=== PATIENT | female | born 1955 | race Caucasian/White ===

== ENCOUNTER 2021-01-28 07:00 | Inpatient (IN) ==
[2021-01-28] MEDS ORDERED: GLUCAGON 1 MG VIAL IM PRN (09:57)
[2021-01-28] MEDS ORDERED: DEXTROSE 50% 25 GM/50 ML VIAL IV PRN (09:57)
[2021-01-28] MEDS ORDERED: SODIUM CHLORIDE 0.9% 1,000 ML IV SCH (10:00)
[2021-01-28] MEDS ORDERED: NITROGLYCERIN SL 0.4 MG TABLET SL PRN (10:06)
[2021-01-28] MEDS ORDERED: DEXTROSE 50% 25 GM/50 ML SYRINGE IV PRN (10:26)
[2021-01-28] MEDS: INSULIN REGULAR 100 UNIT/ML SUBCUT SCH ×3 (12:20→20:58)
[2021-01-28 12:59] LABS: Basophils % 0.3 % (0.0-0.8); Eosinophils # 0.1 10*3/uL (0.0-0.87); Eosinophils % 1.9 % (0.00-10.9); Immature Granulocytes % 0.6 %; Immature Granulocytes Absolute 0.02 #; Lymphocytes # 0.7 10*3/uL (1.4-4.0); Lymphocytes % 21.3 % (21.3-54.2); Mean Corpuscular HGB Conc 32.4 GM/DL (32-36); Mean Platelet Volume 10.8 FL (9.6-12.0); Monocytes % 10.5 % (1.7-12.7); Neutrophils % 65.4 % (38.7-73.9); Red Blood Count 2.31 MC/CUMM (3.8-5.5); Red Cell Distribution Width 15.8 % (9.3-17.3); White Blood Count 3.2 T/CUMM (4-12)
[2021-01-28 13:04] LABS: Hematocrit 23.8 VOL% (35.7-47.0); Hemoglobin 7.7 GM/DL (12.0-16.0); Platelet Count 50 T/CUMM (130-400)
[2021-01-28 13:16] LABS: Bilirubin,Total 0.7 MG/DL (0.20-1.00); Calcium 8.7 MG/DL (8.5-10.1); Osmolality,Calculated 277.2 MOS/KG (273-304); Potassium 4.5 MMOL/L (3.5-5.1); Total Protein 5.8 G/DL (6.4-8.2)
[2021-01-28] MEDS: CLORAZEPATE 3.75 MG TABLET PO PRN ×2 (14:44→21:04)
[2021-01-28] MEDS: MORPHINE 2 MG/1 ML SYRINGE IV PRN (14:45)
[2021-01-28] MEDS: CHLORHEXIDINE 4% SOLN 118 ML BOTTLE TOP SCH ×2 (16:20→21:31)
[2021-01-28 16:39] LABS: ABG Base Excess 3.3 MMOL/L (-2.5-2.5); ABG HCO3 27.4 MMOL/L (20-26); ABG Oxygen Saturation 94.6 % (95-100); ABG PCO2 41.6 MM HG (35-48); ABG PH 7.434 (7.35-7.45); ABG PO2 70.2 MM HG (80-95); ABG TCO2 25.9 MMOL/L (23-27)
[2021-01-28] MEDS: CHLORHEXIDINE 0.12% ORAL RINSE 60 ML BOTTLE SWISH/SPIT SCH (21:31)
[2021-01-29] MEDS: MORPHINE 2 MG/1 ML SYRINGE IV PRN ×2 (04:12→18:30)
[2021-01-29] MEDS: INSULIN REGULAR 100 UNIT/ML SUBCUT SCH ×4 (09:08→21:38)
[2021-01-29] MEDS: cloNIDine 0.1 MG TABLET PO SCH ×2 (09:55→21:38)
[2021-01-29] MEDS: amLODIPine 10 MG TABLET PO SCH (09:55)
[2021-01-29] MEDS: FUROSEMIDE 40 MG TABLET PO SCH (09:55)
[2021-01-29] MEDS: glipiZIDE 5 MG TABLET PO SCH (09:55)
[2021-01-29] MEDS: carvediloL 6.25 MG TABLET PO SCH ×2 (09:55→21:38)
[2021-01-29] MEDS: CHLORHEXIDINE 0.12% ORAL RINSE 60 ML BOTTLE SWISH/SPIT SCH (09:56)
[2021-01-29] MEDS: CHLORHEXIDINE 4% SOLN 118 ML BOTTLE TOP SCH (09:56)
[2021-01-29] MEDS: CLORAZEPATE 3.75 MG TABLET PO PRN ×3 (10:01→23:45)
[2021-01-29] MEDS ORDERED: SODIUM CHLORIDE 0.9% 1,000 ML IV PRN (13:58)
[2021-01-29] MEDS ORDERED: ZINC OXIDE PASTE 113 GM TUBE TOP PRN (15:09)
[2021-01-29] MEDS ORDERED: DOCUSATE SODIUM 100 MG/10 ML UDCUP PO SCH (21:00)
[2021-01-30] MEDS: CHLORHEXIDINE 0.12% ORAL RINSE 60 ML BOTTLE SWISH/SPIT SCH ×3 (00:20→21:02)
[2021-01-30] MEDS ORDERED: PAPAVERINE 60 MG/2 ML VIAL ONE (04:16)
[2021-01-30] MEDS ORDERED: VANCOMYCIN 1,000 MG VIAL ONE (04:17)
[2021-01-30] MEDS ORDERED: VANCOMYCIN 500 MG VIAL ONE (04:17)
[2021-01-30 04:49] LABS: Basophils % 0.3 % (0.0-0.8); Eosinophils % 1.3 % (0.00-10.9); Hematocrit 28.5 VOL% (35.7-47.0); Hemoglobin 9.3 GM/DL (12.0-16.0); Immature Granulocytes % 0.3 %; Immature Granulocytes Absolute 0.01 #; Lymphocytes % 31.8 % (21.3-54.2); Mean Corpuscular HGB Conc 32.6 GM/DL (32-36); Mean Corpuscular Volume 102.5 FL (87-102); Mean Platelet Volume 10.2 FL (9.6-12.0); Monocytes % 9.7 % (1.7-12.7); Neutrophils % 56.6 % (38.7-73.9); Platelet Count 45 T/CUMM (130-400); Red Blood Count 2.78 MC/CUMM (3.8-5.5); Red Cell Distribution Width 15.6 % (9.3-17.3); White Blood Count 3.2 T/CUMM (4-12)
[2021-01-30] MEDS ORDERED: CEFUROXIME INJ 1,500 MG in SODIUM CHLORIDE 0.9% 100 ML IV ONE (05:00)
[2021-01-30 05:11] LABS: Calcium 8.8 MG/DL (8.5-10.1); Potassium 4.3 MMOL/L (3.5-5.1)
[2021-01-30 05:13] LABS: Hypochromasia Slight; Microcytosis 1+; Ovalocytes Slight; Platelet Estimate Decreased
[2021-01-30] MEDS ORDERED: FAMOTIDINE 20 MG TABLET PO ONE (05:30)
[2021-01-30] MEDS ORDERED: DIAZEPAM 5 MG TABLET PO ONE (05:30)
[2021-01-30] MEDS ORDERED: ALBUTEROL 2.5 MG/3 ML NEB RESP TX ONE (05:30)
[2021-01-30] MEDS ORDERED: MIDAZOLAM 10 MG/2 ML VIAL ONE ×4 (05:34→09:58)
[2021-01-30] MEDS ORDERED: LIDOCAINE 2% 5 ML VIAL ONE ×2 (05:34→10:20)
[2021-01-30] MEDS ORDERED: VECURONIUM 10 MG VIAL IV ONE (05:34)
[2021-01-30] MEDS ORDERED: AMINOCAPROIC ACID 5,000 MG/20 ML VIAL ONE (05:34)
[2021-01-30] MEDS ORDERED: SUFentanil 250 MCG/5 ML AMP ONE ×2 (05:35)
[2021-01-30] MEDS: carvediloL 6.25 MG TABLET PO SCH ×2 (06:03→11:59)
[2021-01-30] MEDS ORDERED: PHENYLEPHRINE 10 MG/1 ML VIAL IV ONE (06:11)
[2021-01-30] MEDS ORDERED: FAMOTIDINE 20 MG/2 ML VIAL IV ONE (06:13)
[2021-01-30 07:48] LABS: ABG HCO3 25.3 MMOL/L (20-26); ABG TCO2 23.5 MMOL/L (23-27); Glucose Heart Surgery 101 MG/DL (74-106); Hematocrit Heart Surgery 24.9 PERCENT (37-47); Ionized Calcium Arterial 1.15 MMOL/L (1.21-1.46); Patient Temperature 37 CELCIUS; Sodium Heart/CVR 137 MMOL/L (135-145)
[2021-01-30 08:50] LABS: Bilirubin,Urine Negative (Negative); Blood, Urine Small mg/dL (Negative); Glucose,Urine (UA) >=500 mg/dL (Negative); Hyaline Casts,Urine 2 /LPF (0-3); Ketones,Urine 5 mg/dL (Negative); Mucus,Urine Occasional /LPF (Occasional); Nitrite,Urine Negative (Negative); Protein,Urine >=500 MG/DL; RBC,Urine 6 /HPF (0-4); Squamous Epithelial Cell,Urine Many /HPF (0-10); Urine Appearance Slightly Hazy (Clear); Urine Color Yellow (Yellow); Urine Urobilinogen < 2.0 EU/DL (0.2-1.0)
[2021-01-30] MEDS ORDERED: SODIUM CHLORIDE 0.9% 100 ML IV ONE (08:55)
[2021-01-30] MEDS ORDERED: LACTATED RINGERS 1,000 ML IV ONE (08:55)
[2021-01-30] MEDS ORDERED: HEPARIN/NACL 0.9% 2 UNITS/ML 1,000 UNIT/500 ML BAG IV ONE (08:55)
[2021-01-30] MEDS ORDERED: SODIUM CHLORIDE 0.9% 250 ML IV ONE ×2 (08:55→08:56)
[2021-01-30] MEDS ORDERED: SODIUM CHLORIDE 0.9% 1,000 ML IV ONE (08:55)
[2021-01-30] MEDS ORDERED: SEVOFLURANE 1 UNIT/15 MINUTE INH ONE ×2 (08:56→12:03)
[2021-01-30] MEDS ORDERED: METOPROLOL TARTRATE 5 MG/5 ML VIAL IV ONE (08:56)
[2021-01-30] MEDS ORDERED: diphenhydrAMINE 50 MG/1 ML VIAL ONE (08:56)
[2021-01-30 09:10] LABS: Hematocrit Heart Surgery 26.7 PERCENT (37-47); Hemoglobin Heart Surgery 8.6 G/DL (12.0-16.0); PCO2 Patient Temp Venous 55.5 MM HG; PH Patient Temp Venous 7.287; PO2 Patient Temp Venous 44.9 MM HG; Potassium Heart/CVR 4.8 MMOL/L (3.5-5.1); VBG Base Excess -0.5 MEQ/L (0-4); VBG HCO3 23.8 MEQ/L (24-28); VBG Oxygen Saturation 80.3 %; VBG PCO2 61.2 MMHG (41-51); VBG PH 7.26; VBG PO2 51.4 MMHG (17-40); VBG Total CO2 25.9 MMOL/L
[2021-01-30] MEDS ORDERED: AMIODARONE 150 MG/3 ML VIAL ONE (09:31)
[2021-01-30 09:37] LABS: Hematocrit Heart Surgery 25.3 PERCENT (37-47); Hemoglobin Heart Surgery 8.1 G/DL (12.0-16.0); PCO2 Patient Temp Venous 66.4 MM HG; PH Patient Temp Venous 7.226; PO2 Patient Temp Venous 45.8 MM HG; Potassium Heart/CVR 5.2 MMOL/L (3.5-5.1); VBG HCO3 23.2 MEQ/L (24-28); VBG Oxygen Saturation 71.4 %; VBG PCO2 66.4 MMHG (41-51); VBG PH 7.226; VBG PO2 45.8 MMHG (17-40); VBG Total CO2 26.3 MMOL/L
[2021-01-30] MEDS ORDERED: SODIUM CHLORIDE 0.9% 1,000 ML IV SCH (10:00)
[2021-01-30] MEDS ORDERED: THROMBIN TOPICAL (RECOMBINANT) 5,000 UNIT VIAL TOP ONE (10:00)
[2021-01-30] MEDS ORDERED: SODIUM BICARBONATE 50 MEQ/50 ML VIAL IV ONE ×2 (10:01→10:21)
[2021-01-30] MEDS ORDERED: NITROPRUSSIDE 50 MG/2 ML VIAL ONE (10:01)
[2021-01-30] MEDS ORDERED: POTASSIUM CHLORIDE RIDER 20 MEQ/100 ML PREMIX IV ONE (10:02)
[2021-01-30] MEDS ORDERED: PHENYLEPHRINE DRIP 40 MG/250 ML PREMIX IV ONE (10:02)
[2021-01-30] MEDS ORDERED: CALCIUM CHLORIDE 1,000 MG/10 ML SYRINGE IV ONE (10:03)
[2021-01-30 10:10] LABS: ABG Base Excess 2.3 MMOL/L (-2.5-2.5); ABG HCO3 26.5 MMOL/L (20-26); ABG TCO2 24.8 MMOL/L (23-27); Glucose Heart Surgery 194 MG/DL (74-106); Hematocrit Heart Surgery 23.2 PERCENT (37-47); Hemoglobin Heart Surgery 7.4 G/DL (12.0-16.0); Ionized Calcium Arterial 1.05 MMOL/L (1.21-1.46); Patient Temperature 37 CELCIUS; Potassium Heart/CVR 4.5 MMOL/L (3.5-5.1); Sodium Heart/CVR 135 MMOL/L (135-145)
[2021-01-30] MEDS ORDERED: MAGNESIUM SULFATE 5 GM/10 ML VIAL IV ONE (10:20)
[2021-01-30] MEDS ORDERED: methylPREDNISolone SOD SUC 1,000 MG/8 ML VIAL ONE (10:20)
[2021-01-30] MEDS ORDERED: DEXTROSE 5% KCL 20 MEQ 20 MEQ/1,000 ML BAG IV ONE (10:20)
[2021-01-30] MEDS ORDERED: ALBUMIN 25% 25 GM/100 ML VIAL IV ONE (10:20)
[2021-01-30] MEDS ORDERED: FUROSEMIDE 20 MG/2 ML VIAL ONE (10:21)
[2021-01-30] MEDS ORDERED: HEPARIN 10,000 UNIT/10 ML VIAL ONE (10:21)
[2021-01-30] MEDS ORDERED: PROTAMINE SULFATE 250 MG/25 ML VIAL IV ONE (10:21)
[2021-01-30] MEDS ORDERED: MANNITOL 12.5 GM/50 ML VIAL IV ONE (10:21)
[2021-01-30] MEDS ORDERED: CALCIUM CHLORIDE 1,000 MG/10 ML VIAL IV ONE ×2 (10:28→12:03)
[2021-01-30] MEDS ORDERED: hydrALAZINE 20 MG/1 ML VIAL ONE (10:28)
[2021-01-30] MEDS ORDERED: INSULIN REGULAR DRIP 100 ML IV SCH (10:40)
[2021-01-30] MEDS ORDERED: ALBUMIN 5% 12.5 GM/250 ML VIAL IV PRN (10:40)
[2021-01-30] MEDS ORDERED: POTASSIUM CHLORIDE RIDER 20 MEQ/100 ML PREMIX IV PRN (10:40)
[2021-01-30] MEDS ORDERED: VECURONIUM 10 MG VIAL IV PRN ×2 (10:40)
[2021-01-30] MEDS ORDERED: CALCIUM CHLORIDE 1,000 MG/10 ML SYRINGE IV PRN (10:40)
[2021-01-30] MEDS ORDERED: DEXTROSE 50% 25 GM/50 ML SYRINGE IV PRN ×2 (10:40)
[2021-01-30] MEDS ORDERED: SODIUM CHLORIDE 0.45% 1,000 ML IV SCH (10:40)
[2021-01-30] MEDS ORDERED: MAGNESIUM SULF RIDER 2 GM/50 ML PREMIX IV PRN (10:40)
[2021-01-30] MEDS ORDERED: ACETAMINOPHEN 650 MG SUPP RECTAL PRN (10:40)
[2021-01-30] MEDS ORDERED: INSULIN REGULAR 100 UNIT/ML IV ONE (10:40)
[2021-01-30] MEDS ORDERED: PHENYLEPHRINE DRIP 40 MG/250 ML PREMIX IV PRN (10:40)
[2021-01-30] MEDS ORDERED: LACTATED RINGERS 250 ML IV PRN (10:40)
[2021-01-30] MEDS ORDERED: POTASSIUM CHLORIDE RIDER 10 MEQ/100 ML PREMIX IV PRN (10:40)
[2021-01-30] MEDS ORDERED: MIDAZOLAM 10 MG/2 ML VIAL IV PRN (10:40)
[2021-01-30] MEDS ORDERED: MAGNESIUM SULF RIDER 4 GM/100 ML PREMIX IV PRN (10:40)
[2021-01-30] MEDS ORDERED: CHLORHEXIDINE 4% SOLN 118 ML BOTTLE TOP PRN (10:40)
[2021-01-30] MEDS ORDERED: MIDAZOLAM 2 MG/2 ML VIAL IV PRN (10:40)
[2021-01-30] MEDS ORDERED: NITROPRUSSIDE 100 MG in DEXTROSE 5% 250 ML IV PRN (10:40)
[2021-01-30] MEDS ORDERED: INSULIN REGULAR 100 UNIT/ML IV PRN (10:40)
[2021-01-30] MEDS: SODIUM CHLORIDE 0.45% 1,000 ML IV SCH (11:00)
[2021-01-30 11:28] LABS: Basophils % 0.3 % (0.0-0.8); Eosinophils % 0.3 % (0.00-10.9); Hemoglobin 7.6 GM/DL (12.0-16.0); Immature Granulocytes % 2.7 %; Immature Granulocytes Absolute 0.08 #; Lymphocytes # 0.2 10*3/uL (1.4-4.0); Lymphocytes % 7.8 % (21.3-54.2); Mean Corpuscular HGB Conc 31.7 GM/DL (32-36); Mean Corpuscular Volume 99.2 FL (87-102); Mean Platelet Volume 10.3 FL (9.6-12.0); Monocytes % 7.1 % (1.7-12.7); Neutrophils % 81.8 % (38.7-73.9); Platelet Count 45 T/CUMM (130-400); Red Blood Count 2.42 MC/CUMM (3.8-5.5); Red Cell Distribution Width 16.9 % (9.3-17.3); White Blood Count 2.9 T/CUMM (4-12)
[2021-01-30 11:30] LABS: ABG Base Excess 2.1 MMOL/L (-2.5-2.5); ABG HCO3 26.2 MMOL/L (20-26); ABG Oxygen Saturation 94.8 % (95-100); ABG PCO2 44.4 MM HG (35-48); ABG PH 7.397 (7.35-7.45); ABG PO2 74.5 MM HG (80-95); ABG TCO2 24.7 MMOL/L (23-27); Glucose Heart Surgery 169 MG/DL (74-106); Hematocrit Heart Surgery 32.6 PERCENT (37-47); Hemoglobin Heart Surgery 10.5 G/DL (12.0-16.0); Potassium Heart/CVR 4.2 MMOL/L (3.5-5.1)
[2021-01-30 11:37] LABS: PT Patient Result 11.6 SECS (10.5-12.0); Partial Thromboplastin Time 25.9 SECS (23.8-32.1)
[2021-01-30 11:48] LABS: CKMB % 5.3 %
[2021-01-30 11:51] LABS: Anisocytosis Slight; Macrocytosis Slight; Platelet Estimate Decreased
[2021-01-30 11:58] LABS: Albumin 2.5 G/DL (3.4-5.0); Bilirubin,Total 1.2 MG/DL (0.20-1.00); Osmolality,Calculated 290.3 MOS/KG (273-304); Potassium 4.4 MMOL/L (3.5-5.1)
[2021-01-30] MEDS: glipiZIDE 5 MG TABLET PO SCH (11:58)
[2021-01-30] MEDS: cloNIDine 0.1 MG TABLET PO SCH (11:58)
[2021-01-30] MEDS: INSULIN REGULAR 100 UNIT/ML SUBCUT SCH (11:58)
[2021-01-30] MEDS: FUROSEMIDE 40 MG TABLET PO SCH (11:59)
[2021-01-30] MEDS: amLODIPine 10 MG TABLET PO SCH (11:59)
[2021-01-30 13:34] LABS: ABG Base Excess 0.2 MMOL/L (-2.5-2.5); ABG HCO3 24.7 MMOL/L (20-26); ABG Oxygen Saturation 98.4 % (95-100); ABG PCO2 43.3 MM HG (35-48); ABG PH 7.378 (7.35-7.45); ABG TCO2 23.6 MMOL/L (23-27); Glucose Heart Surgery 173 MG/DL (74-106); Hematocrit Heart Surgery 26.7 PERCENT (37-47); Hemoglobin Heart Surgery 8.6 G/DL (12.0-16.0); Potassium Heart/CVR 4.2 MMOL/L (3.5-5.1)
[2021-01-30] MEDS ORDERED: OXYMETAZOLINE 0.05% NASAL SPRAY 15 ML BOTTLE BOTH NARES PRN (13:56)
[2021-01-30 15:45] LABS: ABG Base Excess -0.1 MMOL/L (-2.5-2.5); ABG HCO3 24.3 MMOL/L (20-26); ABG Oxygen Saturation 98.2 % (95-100); ABG PCO2 48.7 MM HG (35-48); ABG PH 7.337 (7.35-7.45); Glucose Heart Surgery 163 MG/DL (74-106); Hematocrit Heart Surgery 29.9 PERCENT (37-47); Hemoglobin Heart Surgery 9.7 G/DL (12.0-16.0); Potassium Heart/CVR 4.7 MMOL/L (3.5-5.1)
[2021-01-30] MEDS: MORPHINE 10 MG/1 ML VIAL IV PRN ×3 (16:27→23:47)
[2021-01-30] MEDS ORDERED: HEPARIN 10,000 UNIT/10 ML VIAL IV ONE ×2 (17:00→19:00)
[2021-01-30] MEDS ORDERED: SODIUM CHLORIDE 0.9% 1,000 ML IV PRN (17:22)
[2021-01-30 18:33] LABS: ABG Base Excess 2.5 MMOL/L (-2.5-2.5); ABG HCO3 26.6 MMOL/L (20-26); ABG Oxygen Saturation 97.1 % (95-100); ABG PCO2 48.6 MM HG (35-48); ABG PH 7.376 (7.35-7.45); ABG TCO2 25.3 MMOL/L (23-27); Glucose Heart Surgery 118 MG/DL (74-106); Hematocrit Heart Surgery 36.7 PERCENT (37-47); Hemoglobin Heart Surgery 11.9 G/DL (12.0-16.0); Potassium Heart/CVR 3.6 MMOL/L (3.5-5.1)
[2021-01-30] MEDS: CEFUROXIME INJ 1,500 MG in SODIUM CHLORIDE 0.9% 100 ML IV SCH (18:43)
[2021-01-30 18:56] LABS: High Sensitive Troponin I* 3284.5 ng/L (0-54)
[2021-01-30 19:39] LABS: ABG Base Excess 2.3 MMOL/L (-2.5-2.5); ABG HCO3 26.5 MMOL/L (20-26); ABG Oxygen Saturation 97.6 % (95-100); ABG PCO2 45.6 MM HG (35-48); ABG PH 7.392 (7.35-7.45); ABG TCO2 24.9 MMOL/L (23-27); Glucose Heart Surgery 116 MG/DL (74-106); Hematocrit Heart Surgery 34.7 PERCENT (37-47); Hemoglobin Heart Surgery 11.2 G/DL (12.0-16.0); Potassium Heart/CVR 3.9 MMOL/L (3.5-5.1)
[2021-01-30 21:55] LABS: ABG Base Excess 1.8 MMOL/L (-2.5-2.5); ABG Oxygen Saturation 96.7 % (95-100); ABG PCO2 46.2 MM HG (35-48); ABG PH 7.381 (7.35-7.45); ABG PO2 89.5 MM HG (80-95); ABG TCO2 24.7 MMOL/L (23-27); Glucose Heart Surgery 125 MG/DL (74-106); Hematocrit Heart Surgery 33.4 PERCENT (37-47); Hemoglobin Heart Surgery 10.8 G/DL (12.0-16.0); Potassium Heart/CVR 4.2 MMOL/L (3.5-5.1)
[2021-01-31 01:34] LABS: ABG Base Excess 1.1 MMOL/L (-2.5-2.5); ABG HCO3 25.3 MMOL/L (20-26); ABG Oxygen Saturation 95.9 % (95-100); ABG PCO2 45.2 MM HG (35-48); ABG PH 7.378 (7.35-7.45); ABG PO2 80.1 MM HG (80-95); Glucose Heart Surgery 124 MG/DL (74-106); Hematocrit Heart Surgery 32.8 PERCENT (37-47); Hemoglobin Heart Surgery 10.6 G/DL (12.0-16.0); Potassium Heart/CVR 4.3 MMOL/L (3.5-5.1)
[2021-01-31] MEDS: ONDANSETRON 4 MG/2 ML VIAL IV PRN ×2 (01:40→14:12)
[2021-01-31] MEDS: MORPHINE 10 MG/1 ML VIAL IV PRN ×2 (02:31→06:22)
[2021-01-31 02:43] LABS: ABG Base Excess 0.8 MMOL/L (-2.5-2.5); ABG Oxygen Saturation 94.1 % (95-100); ABG PCO2 47.4 MM HG (35-48); ABG PH 7.358 (7.35-7.45); ABG PO2 72.4 MM HG (80-95); ABG TCO2 24.2 MMOL/L (23-27); Glucose Heart Surgery 128 MG/DL (74-106); Hematocrit Heart Surgery 32.9 PERCENT (37-47); Hemoglobin Heart Surgery 10.6 G/DL (12.0-16.0); Potassium Heart/CVR 4.1 MMOL/L (3.5-5.1)
[2021-01-31 03:48] LABS: ABG Base Excess 0.1 MMOL/L (-2.5-2.5); ABG HCO3 25.5 MMOL/L (20-26); ABG Oxygen Saturation 91.8 % (95-100); ABG PH 7.372 (7.35-7.45); ABG PO2 63.9 MM HG (80-95); ABG TCO2 26.9 MMOL/L (23-27); Glucose Heart Surgery 119 MG/DL (74-106); Hemoglobin Heart Surgery 10.8 G/DL (12.0-16.0); Potassium Heart/CVR 4.1 MMOL/L (3.5-5.1)
[2021-01-31 03:56] LABS: Basophils % 0.2 % (0.0-0.8); Hematocrit 31.4 VOL% (35.7-47.0); Immature Granulocytes Absolute 0.06 #; Lymphocytes # 0.4 10*3/uL (1.4-4.0); Lymphocytes % 6.9 % (21.3-54.2); Mean Corpuscular HGB Conc 32.2 GM/DL (32-36); Mean Corpuscular Volume 94.6 FL (87-102); Mean Platelet Volume 11.4 FL (9.6-12.0); Monocytes % 10.7 % (1.7-12.7); Neutrophils % 81.2 % (38.7-73.9); Red Blood Count 3.32 MC/CUMM (3.8-5.5); Red Cell Distribution Width 18.5 % (9.3-17.3); White Blood Count 6.3 T/CUMM (4-12)
[2021-01-31 03:58] LABS: Hemoglobin 10.1 GM/DL (12.0-16.0)
[2021-01-31 04:01] LABS: Platelet Count 26 T/CUMM (130-400)
[2021-01-31 04:13] LABS: CKMB % 3.7 %; High Sensitive Troponin I* 3801.3 ng/L (0-54)
[2021-01-31 04:14] LABS: Hypochromasia Slight; Platelet Estimate Decreased
[2021-01-31 04:34] LABS: Albumin 2.9 G/DL (3.4-5.0); Bilirubin,Direct 0.44 MG/DL (0.0-0.20); Calcium 8.6 MG/DL (8.5-10.1); Osmolality,Calculated 283.4 MOS/KG (273-304); Potassium 4.3 MMOL/L (3.5-5.1); Total Protein 5.4 G/DL (6.4-8.2)
[2021-01-31] MEDS: CEFUROXIME INJ 1,500 MG in SODIUM CHLORIDE 0.9% 100 ML IV SCH ×2 (06:06→20:30)
[2021-01-31] MEDS: methylPREDNISolone SOD SUC 40 MG/1 ML VIAL IV SCH ×3 (07:02→23:55)
[2021-01-31] MEDS: CHLORHEXIDINE 0.12% ORAL RINSE 60 ML BOTTLE SWISH/SPIT SCH ×2 (09:00→21:30)
[2021-01-31] MEDS: oxyCODONE/ACETAMINOPHEN 5-325 MG TABLET PO PRN ×2 (11:06→18:07)
[2021-01-31] MEDS: carvediloL 6.25 MG TABLET PO SCH ×2 (11:07→21:30)
[2021-01-31] MEDS: ISOSORBIDE DINITRATE 20 MG TABLET PO SCH ×2 (11:07→21:30)
[2021-01-31 12:03] LABS: Basophils % 0.1 % (0.0-0.8); Hematocrit 31.7 VOL% (35.7-47.0); Immature Granulocytes % 1.1 %; Immature Granulocytes Absolute 0.08 #; Lymphocytes # 0.5 10*3/uL (1.4-4.0); Lymphocytes % 6.4 % (21.3-54.2); Mean Corpuscular HGB Conc 31.5 GM/DL (32-36); Mean Corpuscular Volume 96.4 FL (87-102); Mean Platelet Volume 11.5 FL (9.6-12.0); Monocytes % 7.8 % (1.7-12.7); Neutrophils % 84.6 % (38.7-73.9); Red Blood Count 3.29 MC/CUMM (3.8-5.5); Red Cell Distribution Width 18.8 % (9.3-17.3)
[2021-01-31 12:08] LABS: Platelet Count 35 T/CUMM (130-400)
[2021-01-31] MEDS: cloNIDine 0.1 MG TABLET PO SCH ×2 (12:19→21:30)
[2021-01-31 12:22] LABS: CKMB % 2.7 %; High Sensitive Troponin I* 2962.4 ng/L (0-54)
[2021-01-31] MEDS: SODIUM CHLORIDE 0.45% 1,000 ML IV SCH (12:56)
[2021-01-31] MEDS ORDERED: amLODIPine 10 MG TABLET PO ONE (13:00)
[2021-01-31 13:03] LABS: Anisocytosis 1+; Macrocytosis Slight; Platelet Estimate Decreased
[2021-01-31] MEDS: ALBUTEROL/IPRATROPIUM 3 ML NEB RESP TX SCH ×2 (13:18→19:22)
[2021-01-31] MEDS ORDERED: hydrALAZINE 20 MG/1 ML VIAL IV PRN (13:40)
[2021-01-31] MEDS ORDERED: CEFUROXIME INJ 1,500 MG in SODIUM CHLORIDE 0.9% 100 ML IV SCH (20:30)
[2021-01-31] MEDS: LORATADINE 10 MG TABLET PO SCH (21:30)
[2021-02-01] MEDS: INSULIN REGULAR 100 UNIT/ML SUBCUT SCH ×5 (00:30→23:20)
[2021-02-01] MEDS: oxyCODONE/ACETAMINOPHEN 5-325 MG TABLET PO PRN ×3 (00:35→20:34)
[2021-02-01] MEDS: ALBUTEROL/IPRATROPIUM 3 ML NEB RESP TX SCH ×4 (01:51→19:15)
[2021-02-01 05:30] LABS: Basophils % 0.2 % (0.0-0.8); Hematocrit 28.9 VOL% (35.7-47.0); Hemoglobin 9.3 GM/DL (12.0-16.0); Immature Granulocytes % 1.2 %; Immature Granulocytes Absolute 0.06 #; Lymphocytes # 0.5 10*3/uL (1.4-4.0); Lymphocytes % 9.5 % (21.3-54.2); Mean Corpuscular HGB Conc 32.2 GM/DL (32-36); Mean Corpuscular Volume 95.7 FL (87-102); Mean Platelet Volume 11.5 FL (9.6-12.0); Monocytes % 12.2 % (1.7-12.7); Neutrophils % 76.9 % (38.7-73.9); Red Blood Count 3.02 MC/CUMM (3.8-5.5); White Blood Count 4.8 T/CUMM (4-12)
[2021-02-01 05:33] LABS: Platelet Count 24 T/CUMM (130-400)
[2021-02-01 05:39] LABS: Bilirubin,Direct 0.24 MG/DL (0.0-0.20)
[2021-02-01 05:40] LABS: Albumin 2.7 G/DL (3.4-5.0); Potassium 4.7 MMOL/L (3.5-5.1); Total Protein 5.7 G/DL (6.4-8.2)
[2021-02-01 05:48] LABS: Hypochromasia 1+
[2021-02-01 05:49] LABS: Microcytosis 1+; Ovalocytes Few; Platelet Estimate Decreased; Tear Drop Cells Slight
[2021-02-01] MEDS: methylPREDNISolone SOD SUC 40 MG/1 ML VIAL IV SCH ×3 (06:30→23:26)
[2021-02-01] MEDS: cloNIDine 0.1 MG TABLET PO SCH ×2 (08:28→20:34)
[2021-02-01] MEDS: carvediloL 6.25 MG TABLET PO SCH ×2 (08:30→20:34)
[2021-02-01] MEDS: ISOSORBIDE DINITRATE 20 MG TABLET PO SCH ×3 (08:30→20:35)
[2021-02-01] MEDS: amLODIPine 10 MG TABLET PO SCH (08:30)
[2021-02-01] MEDS: CHLORHEXIDINE 0.12% ORAL RINSE 60 ML BOTTLE SWISH/SPIT SCH ×2 (08:31→20:35)
[2021-02-01] MEDS: LORATADINE 10 MG TABLET PO SCH (20:34)
[2021-02-02] MEDS: ALBUTEROL/IPRATROPIUM 3 ML NEB RESP TX SCH ×4 (00:30→19:30)
[2021-02-02 04:23] LABS: Hematocrit 27.2 VOL% (35.7-47.0); Hemoglobin 8.8 GM/DL (12.0-16.0); Immature Granulocytes % 0.9 %; Immature Granulocytes Absolute 0.04 #; Lymphocytes # 0.4 10*3/uL (1.4-4.0); Lymphocytes % 8.5 % (21.3-54.2); Mean Corpuscular HGB Conc 32.4 GM/DL (32-36); Mean Corpuscular Volume 95.8 FL (87-102); Mean Platelet Volume 11.5 FL (9.6-12.0); Monocytes % 8.3 % (1.7-12.7); Neutrophils % 82.3 % (38.7-73.9); Red Blood Count 2.84 MC/CUMM (3.8-5.5); Red Cell Distribution Width 17.5 % (9.3-17.3); White Blood Count 4.4 T/CUMM (4-12)
[2021-02-02 04:25] LABS: Platelet Count 28 T/CUMM (130-400)
[2021-02-02 04:44] LABS: Albumin 2.6 G/DL (3.4-5.0); Bilirubin,Direct 0.18 MG/DL (0.0-0.20); Calcium 8.9 MG/DL (8.5-10.1); Osmolality,Calculated 286.8 MOS/KG (273-304); Potassium 5.1 MMOL/L (3.5-5.1); Total Protein 5.7 G/DL (6.4-8.2)
[2021-02-02 04:47] LABS: Hypochromasia Slight; Platelet Estimate Decreased
[2021-02-02] MEDS: oxyCODONE/ACETAMINOPHEN 5-325 MG TABLET PO PRN ×3 (06:05→20:40)
[2021-02-02] MEDS: glipiZIDE 10 MG TABLET PO SCH (07:35)
[2021-02-02] MEDS: INSULIN REGULAR 100 UNIT/ML SUBCUT SCH ×4 (07:36→20:41)
[2021-02-02] MEDS: methylPREDNISolone SOD SUC 40 MG/1 ML VIAL IV SCH ×3 (07:37→22:24)
[2021-02-02] MEDS: CHLORHEXIDINE 0.12% ORAL RINSE 60 ML BOTTLE SWISH/SPIT SCH ×2 (08:48→20:41)
[2021-02-02] MEDS ORDERED: MAGNESIUM SULF RIDER 2 GM/50 ML PREMIX IV PRN (09:32)
[2021-02-02] MEDS ORDERED: ALUMINUM/MAGNES/SIMETH MAX STR 30 ML UDCUP PO PRN (09:32)
[2021-02-02] MEDS ORDERED: DEXTROSE 50% 25 GM/50 ML SYRINGE IV PRN (09:32)
[2021-02-02] MEDS ORDERED: ACETAMINOPHEN 325 MG TABLET PO PRN (09:32)
[2021-02-02] MEDS ORDERED: MAGNESIUM SULF RIDER 4 GM/100 ML PREMIX IV PRN (09:32)
[2021-02-02] MEDS ORDERED: POTASSIUM CHLORIDE 20 MEQ TABLET PO PRN (09:32)
[2021-02-02] MEDS ORDERED: GLUCAGON 1 MG VIAL IM PRN (09:32)
[2021-02-02] MEDS ORDERED: ZALEPLON 5 MG CAPSULE PO PRN (09:32)
[2021-02-02] MEDS: ISOSORBIDE DINITRATE 20 MG TABLET PO SCH ×3 (10:58→20:40)
[2021-02-02] MEDS: amLODIPine 10 MG TABLET PO SCH (10:58)
[2021-02-02] MEDS: carvediloL 6.25 MG TABLET PO SCH ×2 (10:58→20:39)
[2021-02-02] MEDS: cloNIDine 0.1 MG TABLET PO SCH ×2 (10:58→20:39)
[2021-02-02] MEDS ORDERED: HEPARIN 10,000 UNIT/10 ML VIAL IV PRN (13:27)
[2021-02-02] MEDS: ATORVASTATIN 80 MG TABLET PO SCH (20:39)
[2021-02-02] MEDS: LORATADINE 10 MG TABLET PO SCH (20:40)
[2021-02-03] MEDS: ALBUTEROL/IPRATROPIUM 3 ML NEB RESP TX SCH ×5 (00:23→20:16)
[2021-02-03] MEDS: methylPREDNISolone SOD SUC 40 MG/1 ML VIAL IV SCH ×3 (06:40→22:58)
[2021-02-03 07:36] LABS: Hematocrit 27.1 VOL% (35.7-47.0); Hemoglobin 8.7 GM/DL (12.0-16.0); Immature Granulocytes % 1.5 %; Immature Granulocytes Absolute 0.05 #; Lymphocytes # 0.4 10*3/uL (1.4-4.0); Lymphocytes % 11.7 % (21.3-54.2); Mean Corpuscular HGB Conc 32.1 GM/DL (32-36); Mean Corpuscular Volume 94.8 FL (87-102); Mean Platelet Volume 11.1 FL (9.6-12.0); Neutrophils % 80.8 % (38.7-73.9); Platelet Count 42 T/CUMM (130-400); Red Blood Count 2.86 MC/CUMM (3.8-5.5); White Blood Count 3.3 T/CUMM (4-12)
[2021-02-03 07:59] LABS: Alanine Aminotransferase 15 U/L (13-56); Albumin 2.6 G/DL (3.4-5.0); Alkaline Phosphatase 85 U/L (45-117); Aspartate Amino Transferase 10 U/L (0-37); Bilirubin,Indirect 0.3 MG/DL (0.0-1.0); Blood Urea Nitrogen 76 MG/DL (7-18); Calcium 8.7 MG/DL (8.5-10.1); Carbon Dioxide 25 MMOL/L (21-32); Estimated Glom Filtration Rate 10 ML/MIN; Glucose 266 MG/DL (74-106); Osmolality,Calculated 295.5 MOS/KG (273-304); Potassium 4.4 MMOL/L (3.5-5.1); Sodium 132 MMOL/L (136-145); Total Protein 5.4 G/DL (6.4-8.2)
[2021-02-03] MEDS: glipiZIDE 10 MG TABLET PO SCH (08:27)
[2021-02-03] MEDS: PANTOPRAZOLE 40 MG TABLET PO SCH (08:27)
[2021-02-03] MEDS: ISOSORBIDE DINITRATE 20 MG TABLET PO SCH ×3 (08:27→21:26)
[2021-02-03] MEDS: DOCUSATE SODIUM 100 MG CAPSULE PO SCH (08:27)
[2021-02-03] MEDS: amLODIPine 10 MG TABLET PO SCH (08:27)
[2021-02-03] MEDS: FERROUS SULFATE 325 MG TABLET PO SCH (08:27)
[2021-02-03] MEDS: cloNIDine 0.1 MG TABLET PO SCH ×2 (08:27→21:26)
[2021-02-03] MEDS: MAGNESIUM HYDROXIDE SUSP 30 ML UDCUP PO PRN (08:27)
[2021-02-03] MEDS: carvediloL 6.25 MG TABLET PO SCH ×2 (08:28→21:26)
[2021-02-03] MEDS: CHLORHEXIDINE 0.12% ORAL RINSE 60 ML BOTTLE SWISH/SPIT SCH ×2 (08:28→21:26)
[2021-02-03] MEDS: INSULIN REGULAR 100 UNIT/ML SUBCUT SCH ×4 (08:29→21:24)
[2021-02-03 09:14] LABS: Hypochromasia 1+; Microcytosis 1+; Ovalocytes Slight; Platelet Estimate Decreased
[2021-02-03] MEDS: oxyCODONE/ACETAMINOPHEN 5-325 MG TABLET PO PRN ×2 (12:50→17:52)
[2021-02-03] MEDS: ONDANSETRON 4 MG/2 ML VIAL IV PRN (17:11)
[2021-02-03] MEDS: LORATADINE 10 MG TABLET PO SCH (21:25)
[2021-02-03] MEDS: ATORVASTATIN 80 MG TABLET PO SCH (21:26)
[2021-02-04] MEDS: oxyCODONE/ACETAMINOPHEN 5-325 MG TABLET PO PRN ×4 (00:11→23:17)
[2021-02-04 05:26] LABS: Eosinophils % 0.4 % (0.00-10.9); Hematocrit 27.6 VOL% (35.7-47.0); Hemoglobin 8.8 GM/DL (12.0-16.0); Immature Granulocytes % 0.4 %; Immature Granulocytes Absolute 0.02 #; Lymphocytes # 1.2 10*3/uL (1.4-4.0); Lymphocytes % 26.1 % (21.3-54.2); Mean Corpuscular HGB Conc 31.9 GM/DL (32-36); Mean Corpuscular Volume 94.2 FL (87-102); Neutrophils % 65.1 % (38.7-73.9); Platelet Count 50 T/CUMM (130-400); Red Blood Count 2.93 MC/CUMM (3.8-5.5); Red Cell Distribution Width 17.1 % (9.3-17.3); White Blood Count 4.6 T/CUMM (4-12)
[2021-02-04 05:53] LABS: Hypochromasia 1+; Microcytosis 1+; Platelet Estimate Decreased
[2021-02-04] MEDS: methylPREDNISolone SOD SUC 40 MG/1 ML VIAL IV SCH ×2 (06:42→20:56)
[2021-02-04 06:52] LABS: Alanine Aminotransferase 21 U/L (13-56); Albumin 2.5 G/DL (3.4-5.0); Alkaline Phosphatase 96 U/L (45-117); Aspartate Amino Transferase 18 U/L (0-37); Bilirubin,Indirect 0.4 MG/DL (0.0-1.0); Blood Urea Nitrogen 98 MG/DL (7-18); Calcium 8.8 MG/DL (8.5-10.1); Carbon Dioxide 23 MMOL/L (21-32); Estimated Glom Filtration Rate 7 ML/MIN; Glucose 106 MG/DL (74-106); Potassium 4.9 MMOL/L (3.5-5.1); Sodium 136 MMOL/L (136-145); Total Protein 5.3 G/DL (6.4-8.2)
[2021-02-04] MEDS: ALBUTEROL/IPRATROPIUM 3 ML NEB RESP TX SCH ×2 (07:15→13:00)
[2021-02-04] MEDS: INSULIN REGULAR 100 UNIT/ML SUBCUT SCH ×4 (08:32→20:54)
[2021-02-04] MEDS: amLODIPine 10 MG TABLET PO SCH (08:41)
[2021-02-04] MEDS: cloNIDine 0.1 MG TABLET PO SCH ×2 (08:41→20:53)
[2021-02-04] MEDS: glipiZIDE 10 MG TABLET PO SCH (08:41)
[2021-02-04] MEDS: PANTOPRAZOLE 40 MG TABLET PO SCH (08:42)
[2021-02-04] MEDS: DOCUSATE SODIUM 100 MG CAPSULE PO SCH (08:42)
[2021-02-04] MEDS: carvediloL 6.25 MG TABLET PO SCH ×2 (08:42→20:53)
[2021-02-04] MEDS: FERROUS SULFATE 325 MG TABLET PO SCH (08:42)
[2021-02-04] MEDS: ISOSORBIDE DINITRATE 20 MG TABLET PO SCH ×3 (08:42→20:53)
[2021-02-04] MEDS: CHLORHEXIDINE 0.12% ORAL RINSE 60 ML BOTTLE SWISH/SPIT SCH ×2 (08:48→20:54)
[2021-02-04] MEDS: SEVELAMER CARBONATE 800 MG TABLET PO SCH (16:26)
[2021-02-04] MEDS: ONDANSETRON 4 MG/2 ML VIAL IV PRN (19:05)
[2021-02-04] MEDS: ATORVASTATIN 80 MG TABLET PO SCH (20:53)
[2021-02-04] MEDS: LORATADINE 10 MG TABLET PO SCH (20:53)
[2021-02-05] MEDS: ALBUTEROL/IPRATROPIUM 3 ML NEB RESP TX SCH ×5 (00:28→20:13)
[2021-02-05] MEDS: ONDANSETRON 4 MG/2 ML VIAL IV PRN (00:59)
[2021-02-05 05:51] LABS: Calcium 8.6 MG/DL (8.5-10.1); Osmolality,Calculated 296.9 MOS/KG (273-304); Potassium 5.4 MMOL/L (3.5-5.1)
[2021-02-05] MEDS: SEVELAMER CARBONATE 800 MG TABLET PO SCH ×3 (09:00→16:55)
[2021-02-05] MEDS: glipiZIDE 10 MG TABLET PO SCH (09:00)
[2021-02-05] MEDS: amLODIPine 10 MG TABLET PO SCH (09:00)
[2021-02-05] MEDS: carvediloL 6.25 MG TABLET PO SCH ×2 (09:00→21:20)
[2021-02-05] MEDS: cloNIDine 0.1 MG TABLET PO SCH ×2 (09:00→21:19)
[2021-02-05] MEDS: POLYETHYLENE GLYCOL POWDER 17 GM PACK PO SCH (09:01)
[2021-02-05] MEDS: ISOSORBIDE DINITRATE 20 MG TABLET PO SCH ×3 (09:01→21:20)
[2021-02-05] MEDS: DOCUSATE SODIUM 100 MG CAPSULE PO SCH (09:02)
[2021-02-05] MEDS: PANTOPRAZOLE 40 MG TABLET PO SCH (09:02)
[2021-02-05] MEDS: FERROUS SULFATE 325 MG TABLET PO SCH (09:02)
[2021-02-05] MEDS: INSULIN REGULAR 100 UNIT/ML SUBCUT SCH ×4 (10:07→21:20)
[2021-02-05] MEDS: methylPREDNISolone SOD SUC 40 MG/1 ML VIAL IV SCH ×2 (10:08→21:21)
[2021-02-05] MEDS: oxyCODONE/ACETAMINOPHEN 5-325 MG TABLET PO PRN ×2 (13:58→22:53)
[2021-02-05] MEDS: CHLORHEXIDINE 0.12% ORAL RINSE 60 ML BOTTLE SWISH/SPIT SCH ×2 (14:59→21:20)
[2021-02-05] MEDS: ATORVASTATIN 80 MG TABLET PO SCH (21:19)
[2021-02-05] MEDS: LORATADINE 10 MG TABLET PO SCH (21:19)
[2021-02-05] MEDS ORDERED: POLYETHYLENE GLYCOL POWDER 255 GM BOTTLE PO ONE (22:30)
[2021-02-06] MEDS: ALBUTEROL/IPRATROPIUM 3 ML NEB RESP TX SCH ×4 (01:06→20:15)
[2021-02-06 07:12] LABS: Eosinophils # 0.1 10*3/uL (0.0-0.87); Eosinophils % 2.2 % (0.00-10.9); Hematocrit 26.5 VOL% (35.7-47.0); Hemoglobin 8.6 GM/DL (12.0-16.0); Immature Granulocytes % 0.9 %; Immature Granulocytes Absolute 0.05 #; Lymphocytes % 17.2 % (21.3-54.2); Mean Corpuscular HGB Conc 32.5 GM/DL (32-36); Mean Corpuscular Volume 94.3 FL (87-102); Mean Platelet Volume 10.2 FL (9.6-12.0); Monocytes % 9.9 % (1.7-12.7); Neutrophils % 69.8 % (38.7-73.9); Platelet Count 57 T/CUMM (130-400); Red Blood Count 2.81 MC/CUMM (3.8-5.5); White Blood Count 5.9 T/CUMM (4-12)
[2021-02-06 07:36] LABS: Hypochromasia 1+; Microcytosis 1+
[2021-02-06 07:37] LABS: Platelet Estimate Decreased
[2021-02-06 07:44] LABS: Alanine Aminotransferase 16 U/L (13-56); Albumin 2.4 G/DL (3.4-5.0); Alkaline Phosphatase 83 U/L (45-117); Aspartate Amino Transferase 11 U/L (0-37); Bilirubin,Indirect 0.8 MG/DL (0.0-1.0); Blood Urea Nitrogen 64 MG/DL (7-18); Calcium 8.5 MG/DL (8.5-10.1); Carbon Dioxide 25 MMOL/L (21-32); Estimated Glom Filtration Rate 9 ML/MIN; Glucose 151 MG/DL (74-106); Osmolality,Calculated 290.1 MOS/KG (273-304); Potassium 4.9 MMOL/L (3.5-5.1); Sodium 135 MMOL/L (136-145); Total Protein 5.1 G/DL (6.4-8.2)
[2021-02-06] MEDS: FERROUS SULFATE 325 MG TABLET PO SCH (09:50)
[2021-02-06] MEDS: ISOSORBIDE DINITRATE 20 MG TABLET PO SCH ×3 (09:50→21:24)
[2021-02-06] MEDS: carvediloL 6.25 MG TABLET PO SCH (09:50)
[2021-02-06] MEDS: DOCUSATE SODIUM 100 MG CAPSULE PO SCH (09:50)
[2021-02-06] MEDS: glipiZIDE 10 MG TABLET PO SCH (09:50)
[2021-02-06] MEDS: amLODIPine 10 MG TABLET PO SCH (09:51)
[2021-02-06] MEDS: cloNIDine 0.1 MG TABLET PO SCH ×2 (09:51→21:24)
[2021-02-06] MEDS: SEVELAMER CARBONATE 800 MG TABLET PO SCH ×3 (09:51→17:53)
[2021-02-06] MEDS: PANTOPRAZOLE 40 MG TABLET PO SCH (09:51)
[2021-02-06] MEDS: methylPREDNISolone SOD SUC 40 MG/1 ML VIAL IV SCH (09:54)
[2021-02-06] MEDS: POLYETHYLENE GLYCOL POWDER 17 GM PACK PO SCH (09:54)
[2021-02-06] MEDS: CHLORHEXIDINE 0.12% ORAL RINSE 60 ML BOTTLE SWISH/SPIT SCH ×2 (09:55→21:28)
[2021-02-06] MEDS: INSULIN REGULAR 100 UNIT/ML SUBCUT SCH ×4 (09:57→21:25)
[2021-02-06] MEDS ORDERED: SODIUM PHOSPHATE ENEMA 133 ML BOTTLE RECTAL PRN (11:32)
[2021-02-06] MEDS: oxyCODONE/ACETAMINOPHEN 5-325 MG TABLET PO PRN (11:55)
[2021-02-06] MEDS: ONDANSETRON 4 MG/2 ML VIAL IV PRN (14:58)
[2021-02-06] MEDS: ATORVASTATIN 80 MG TABLET PO SCH (21:24)
[2021-02-06] MEDS: LORATADINE 10 MG TABLET PO SCH (21:24)
[2021-02-06] MEDS: carvediloL 12.5 MG TABLET PO SCH (21:24)
[2021-02-06] MEDS: MAGNESIUM HYDROXIDE SUSP 30 ML UDCUP PO PRN (21:25)
[2021-02-07] MEDS: oxyCODONE/ACETAMINOPHEN 5-325 MG TABLET PO PRN ×2 (01:20→12:44)
[2021-02-07] MEDS: ALBUTEROL/IPRATROPIUM 3 ML NEB RESP TX SCH ×3 (01:21→13:46)
[2021-02-07 05:18] LABS: Basophils % 0.2 % (0.0-0.8); Eosinophils # 0.1 10*3/uL (0.0-0.87); Eosinophils % 1.9 % (0.00-10.9); Hematocrit 24.7 VOL% (35.7-47.0); Hemoglobin 7.9 GM/DL (12.0-16.0); Immature Granulocytes % 0.6 %; Immature Granulocytes Absolute 0.03 #; Lymphocytes # 0.9 10*3/uL (1.4-4.0); Lymphocytes % 17.4 % (21.3-54.2); Mean Platelet Volume 10.2 FL (9.6-12.0); Monocytes % 10.9 % (1.7-12.7); Red Cell Distribution Width 17.2 % (9.3-17.3); White Blood Count 5.3 T/CUMM (4-12)
[2021-02-07 05:27] LABS: Platelet Count 64 T/CUMM (130-400)
[2021-02-07 05:45] LABS: Albumin 2.3 G/DL (3.4-5.0); Bilirubin,Total 1.4 MG/DL (0.20-1.00); Calcium 8.4 MG/DL (8.5-10.1); Osmolality,Calculated 288.2 MOS/KG (273-304); Potassium 4.7 MMOL/L (3.5-5.1); Total Protein 5.1 G/DL (6.4-8.2)
[2021-02-07 05:52] LABS: Eosinophils 3 % (0-10); Hypochromasia 1+; Lymphocytes 15 % (20-55); Microcytosis 1+; Platelet Estimate Decreased; Segmented Neutrophils 73 % (50-85); Total Cells Counted 100
[2021-02-07 06:00] LABS: Alanine Aminotransferase 13 U/L (13-56); Albumin 2.4 G/DL (3.4-5.0); Alkaline Phosphatase 86 U/L (45-117); Aspartate Amino Transferase 9 U/L (0-37); Bilirubin,Indirect 1.1 MG/DL (0.0-1.0)
[2021-02-07] MEDS: INSULIN REGULAR 100 UNIT/ML SUBCUT SCH ×2 (07:44→12:45)
[2021-02-07] MEDS ORDERED: methylPREDNISolone SOD SUC 40 MG/1 ML VIAL IV SCH (09:00)
[2021-02-07 12:14] VITALS: BP 143/40
[2021-02-07] MEDS: SEVELAMER CARBONATE 800 MG TABLET PO SCH ×2 (12:19→12:43)
[2021-02-07] MEDS: CHLORHEXIDINE 0.12% ORAL RINSE 60 ML BOTTLE SWISH/SPIT SCH (12:40)
[2021-02-07] MEDS: carvediloL 12.5 MG TABLET PO SCH (12:42)
[2021-02-07] MEDS: PANTOPRAZOLE 40 MG TABLET PO SCH (12:42)
[2021-02-07] MEDS: cloNIDine 0.1 MG TABLET PO SCH (12:42)
[2021-02-07] MEDS: FERROUS SULFATE 325 MG TABLET PO SCH (12:42)
[2021-02-07] MEDS: ISOSORBIDE DINITRATE 20 MG TABLET PO SCH (12:43)
[2021-02-07] MEDS: DOCUSATE SODIUM 100 MG CAPSULE PO SCH (12:43)
[2021-02-07] MEDS: glipiZIDE 10 MG TABLET PO SCH (12:43)
[2021-02-07] MEDS: amLODIPine 10 MG TABLET PO SCH (12:43)
[2021-02-07] MEDS: POLYETHYLENE GLYCOL POWDER 17 GM PACK PO SCH (12:44)
[2021-02-09] MEDS ORDERED: predniSONE 10 MG TABLET PO SCH (09:00)
== END 2021-02-07 16:15 | DRG 235 ==
LOC: N.TELES 12:11 → N.CVR 01-30 10:38 → N.ICU 01-31 06:57 → N.TELES 02-02 13:14